=== PATIENT | female | born 1955 | race Caucasian/White ===

== ENCOUNTER → 2018-11-12 | Day surgery (SDC) | payer MEDICARE | END | disposition home or self-care (01) | LOC: GIL 09:44 | DX: R10.9 Unspecified abdominal pain (principal); Z53.8 Procedure and treatment not carried out for other reasons; I48.91 Unspecified atrial fibrillation ==

== ENCOUNTER 2018-11-26 08:22 | Day surgery (SDC) | payer MEDICARE | END 2018-11-26 09:53 | disposition home or self-care (01) | LOC: GIL 08:22 | DX: Z43.1 Encounter for attention to gastrostomy (principal) | CPT/HCPCS: 99211 ==

== ENCOUNTER 2019-03-25 07:29 | Inpatient (IN) | payer MEDICARE, BC ==
[2019-03-25] MEDS: CEFTRIAXONE 1 GM/50 ML (PMX) 50 ML IVPB ×2 (08:08→08:40)
[2019-03-25] MEDS: ONDANSETRON 4 MG INJ IV ×3 (08:09→23:43)
[2019-03-25] MEDS: morphine 4 MG/ML VIAL IV (08:09)
[2019-03-25] MEDS: SODIUM CHLORIDE 0.9% 1L BAG IV* (08:09)
[2019-03-25 08:10] LABS: ADD MAN DIFF? NO
[2019-03-25 08:11] LABS: BASOPHILS % 0.3 % (0.0-2.0); EOSINOPHILS % 0.1 % (0.0-7.0); HEMATOCRIT 48.7 % (37.0-47.0); HEMOGLOBIN 15.3 g/dl (12.0-16.0); LYMPHOCYTES % 14.8 % (15.0-51.0); MEAN CORPUSCULAR HEMOGLOBIN 26.1 pg (29.0-33.0); MEAN CORPUSCULAR HGB CONC 31.4 g/dl (32.0-37.0); MEAN PLATELET VOLUME 11.1 fl (7.4-10.4); MONOCYTE # 0.4 10^3/ul (0.3-0.9); NEUTROPHILS % 81.3 % (39.0-77.0); PLATELET COUNT 371 10^3/UL (140-415); RED BLOOD COUNT 5.87 10^6/ul (4.20-5.40); RED CELL DISTRIBUTION WIDTH 16.6 % (11.5-14.5)
[2019-03-25 08:11] LABS: WHITE BLOOD COUNT 13.5 10^3/ul (4.8-10.8)
[2019-03-25] MEDS: METOPROLOL 5 MG INJ IV (08:17)
[2019-03-25 08:31] LABS: INR 1.99; PROTIME 22.7 Sec (11.9-14.9); PT RATIO 1.8
[2019-03-25 08:32] LABS: PARTIAL THROMBOPLASTIN TIME 35.7 Sec (23.0-35.0)
[2019-03-25 08:44] LABS: ALANINE AMINOTRANSFERASE 18 IU/L (13-69); ALBUMIN 4.2 g/dl (3.3-4.9); ALBUMIN/GLOBULIN RATIO 1.07; ALKALINE PHOSPHATASE 78 IU/L (42-121); ANION GAP 13 (5-13); ASPARTATE AMINO TRANSFERASE 21 IU/L (15-46); BILIRUBIN,INDIRECT 0.5 mg/dl (0-1.1); BILIRUBIN,TOTAL 0.5 mg/dl (0.2-1.3); BLOOD UREA NITROGEN 22 mg/dl (7-20); CALCIUM 10.8 mg/dl (8.4-10.2); CARBON DIOXIDE 24 mmol/L (21-31); CHLORIDE 104 mmol/L (97-110); CREATININE 1.16 mg/dl (0.44-1.00); Estimated GFR 47 mL/min (>60); GLUCOSE 147 mg/dl (70-220); POTASSIUM 4.4 mmol/L (3.5-5.1); SODIUM 141 mmol/L (135-144); TOTAL PROTEIN 8.1 g/dl (6.1-8.1)
[2019-03-25 08:49] LABS: ADD UMIC YES; UR ASCORBIC ACID 40 mg/dL (NEGATIVE); UR BACTERIA MANY /HPF (NONE SEEN); UR BILIRUBIN (Dip) NEGATIVE (NEGATIVE); UR BLOOD (Dip) NEGATIVE (NEGATIVE); UR CLARITY CLOUDY (CLEAR); UR COLOR AMBER (YELLOW); UR GLUCOSE (Dip) NEGATIVE (NEGATIVE); UR KETONES (Dip) TRACE mg/dL (NEGATIVE); UR LEUKOCYTE ESTERASE (Dip) TRACE Leu/ul (NEGATIVE); UR MUCUS MANY /HPF (NONE SEEN); UR NITRITE (Dip) NEGATIVE (NEGATIVE); UR RBC 3 /HPF (0-5); UR SPECIFIC GRAVITY (Dip) 1.023 (1.003-1.030); UR SQUAMOUS EPITHELIAL CELL FEW /HPF (FEW); UR TOTAL PROTEIN (Dip) 3+ mg/dl (NEGATIVE); UR UROBILINOGEN (Dip) NEGATIVE (NEGATIVE); UR WBC 34 /HPF (0-5)
[2019-03-25 08:53] LABS: TROPONIN-I < 0.012 ng/ml (0.000-0.120)
[2019-03-25] MEDS ORDERED: ACETAMINOPHEN 325 MG TAB PO ×2 (10:00→11:00)
[2019-03-25] MEDS ORDERED: ONDANSETRON 4 MG INJ IV (10:00)
[2019-03-25 10:13] LABS: LACTIC ACID 1.9 mmol/L (0.5-2.0)
[2019-03-25] MEDS ORDERED: DOCUSATE SODIUM 100 MG CAP PO (11:00)
[2019-03-25] MEDS ORDERED: LORAZEPAM 0.5 MG TAB PO (11:00)
[2019-03-25] MEDS ORDERED: NACL 0.9% 3 ML SYG IV (11:00)
[2019-03-25] MEDS ORDERED: MAGNESIUM HYDROXIDE 30ML CUP PO (11:00)
[2019-03-25] MEDS ORDERED: DILTIAZEM 25 MG INJ IV (12:00)
[2019-03-25] MEDS: morphine 2 MG INJ IV ×2 (13:12→23:38)
[2019-03-25] MEDS: SOD CHLORIDE 0.9% 1,000 ML IV (14:28)
[2019-03-25 15:37] LABS: LACTIC ACID 1.8 mmol/L (0.5-2.0)
[2019-03-25] MEDS: RIVAROXABAN 20 MG TABLET PO (17:20)
[2019-03-25] MEDS: ATORVASTATIN 20 MG TAB PO (20:42)
[2019-03-25] MEDS: METOPROLOL 50 MG TAB PO (20:43)
[2019-03-26] MEDS: PANTOPRAZOLE (EC) 40 MG TAB PO (05:33)
[2019-03-26] MEDS: SOD CHLORIDE 0.9% 1,000 ML IV (05:35)
[2019-03-26 06:52] LABS: ADD MAN DIFF? NO
[2019-03-26 06:55] LABS: BASOPHILS % 0.4 % (0.0-2.0); EOSINOPHILS # 0.1 10^3/ul (0.0-0.5); EOSINOPHILS % 1.1 % (0.0-7.0); HEMATOCRIT 37.6 % (37.0-47.0); HEMOGLOBIN 11.8 g/dl (12.0-16.0); LYMPHOCYTES # 2.6 10^3/ul (0.8-2.9); LYMPHOCYTES % 23.9 % (15.0-51.0); MEAN CORPUSCULAR HEMOGLOBIN 26.6 pg (29.0-33.0); MEAN CORPUSCULAR HGB CONC 31.4 g/dl (32.0-37.0); MEAN CORPUSCULAR VOLUME 84.9 fl (82.0-101.0); MEAN PLATELET VOLUME 11.6 fl (7.4-10.4); MONOCYTE # 0.9 10^3/ul (0.3-0.9); MONOCYTES % 8.4 % (0.0-11.0); NEUTROPHIL # 7.2 10^3/ul (1.6-7.5); NEUTROPHILS % 65.7 % (39.0-77.0); PLATELET COUNT 270 10^3/UL (140-415); RED BLOOD COUNT 4.43 10^6/ul (4.20-5.40); RED CELL DISTRIBUTION WIDTH 16.4 % (11.5-14.5)
[2019-03-26 07:19] LABS: ALANINE AMINOTRANSFERASE 20 IU/L (13-69); ALBUMIN 2.9 g/dl (3.3-4.9); ALBUMIN/GLOBULIN RATIO 0.96; ALKALINE PHOSPHATASE 48 IU/L (42-121); ANION GAP 5 (5-13); ASPARTATE AMINO TRANSFERASE 17 IU/L (15-46); BILIRUBIN,INDIRECT 0.4 mg/dl (0-1.1); BILIRUBIN,TOTAL 0.4 mg/dl (0.2-1.3); BLOOD UREA NITROGEN 20 mg/dl (7-20); CALCIUM 8.7 mg/dl (8.4-10.2); CARBON DIOXIDE 25 mmol/L (21-31); CHLORIDE 108 mmol/L (97-110); CHOL/HDL RATIO 4.8 RATIO; CHOLESTEROL 146 mg/dl (100-200); CREATININE 0.86 mg/dl (0.44-1.00); Estimated GFR > 60 mL/min (>60); GLUCOSE 78 mg/dl (70-220); HDL CHOLESTEROL 30 mg/dl (35-98); LDL CHOLESTEROL,CALCULATED 95 mg/dl; MAGNESIUM 1.6 mg/dl (1.7-2.5); POTASSIUM 3.8 mmol/L (3.5-5.1); SODIUM 138 mmol/L (135-144); TOTAL PROTEIN 5.9 g/dl (6.1-8.1); TRIGLYCERIDES 107 mg/dl (0-149)
[2019-03-26 07:29] LABS: FREE T4 (FREE THYROXINE) 1.53 ng/dl (0.78-2.44)
[2019-03-26] MEDS: CEFTRIAXONE 1 GM/50 ML (PMX) 50 ML IVPB (08:35)
[2019-03-26] MEDS: METOPROLOL 50 MG TAB PO ×2 (08:35→21:26)
[2019-03-26] MEDS: BARIUM SULFATE 135 ML (E-Z HD) PO (10:42)
[2019-03-26] MEDS: MAGNESIUM SULFATE 2 GM/50 ML 50 ML IVPB (11:41)
[2019-03-26 12:18] LABS: THYROID STIMULATING HORMONE 0.265 MIU/L (0.465-4.680)
[2019-03-26 15:49] LABS: CARCINOEMBRYONIC ANTIGEN 0.5 ng/ml (0.0-5.0)
[2019-03-26] MEDS: ATORVASTATIN 40 MG TAB PO (21:25)
[2019-03-27] MEDS: HYDROCODONE/APAP (5/325) TAB PO (00:26)
[2019-03-27] MEDS: PANTOPRAZOLE (EC) 40 MG TAB PO (05:20)
[2019-03-27 06:50] LABS: ADD MAN DIFF? NO
[2019-03-27 06:57] LABS: WHITE BLOOD COUNT 9.6 10^3/ul (4.8-10.8)
[2019-03-27 06:57] LABS: BASOPHILS % 0.4 % (0.0-2.0); EOSINOPHILS # 0.1 10^3/ul (0.0-0.5); EOSINOPHILS % 1.1 % (0.0-7.0); HEMATOCRIT 41.5 % (37.0-47.0); HEMOGLOBIN 13.1 g/dl (12.0-16.0); LYMPHOCYTES # 2.3 10^3/ul (0.8-2.9); LYMPHOCYTES % 23.9 % (15.0-51.0); MEAN CORPUSCULAR HEMOGLOBIN 26.5 pg (29.0-33.0); MEAN CORPUSCULAR HGB CONC 31.6 g/dl (32.0-37.0); MEAN CORPUSCULAR VOLUME 83.8 fl (82.0-101.0); MONOCYTE # 0.5 10^3/ul (0.3-0.9); MONOCYTES % 5.4 % (0.0-11.0); NEUTROPHIL # 6.6 10^3/ul (1.6-7.5); NEUTROPHILS % 68.7 % (39.0-77.0); PLATELET COUNT 279 10^3/UL (140-415); RED BLOOD COUNT 4.95 10^6/ul (4.20-5.40); RED CELL DISTRIBUTION WIDTH 16.2 % (11.5-14.5)
[2019-03-27 07:21] LABS: ALANINE AMINOTRANSFERASE 15 IU/L (13-69); ALBUMIN/GLOBULIN RATIO 1.11; ALKALINE PHOSPHATASE 54 IU/L (42-121); ANION GAP 6 (5-13); ASPARTATE AMINO TRANSFERASE 15 IU/L (15-46); BILIRUBIN,INDIRECT 0.4 mg/dl (0-1.1); BILIRUBIN,TOTAL 0.4 mg/dl (0.2-1.3); BLOOD UREA NITROGEN 17 mg/dl (7-20); CALCIUM 8.8 mg/dl (8.4-10.2); CARBON DIOXIDE 25 mmol/L (21-31); CHLORIDE 107 mmol/L (97-110); CREATININE 0.95 mg/dl (0.44-1.00); Estimated GFR 59 mL/min (>60); GLUCOSE 107 mg/dl (70-220); POTASSIUM 3.4 mmol/L (3.5-5.1); SODIUM 138 mmol/L (135-144); TOTAL PROTEIN 5.7 g/dl (6.1-8.1)
[2019-03-27 07:22] LABS: IRON 24 ug/dl (35-150)
[2019-03-27 07:23] LABS: PHOSPHORUS 2.9 mg/dl (2.5-4.9)
[2019-03-27 07:23] LABS: MAGNESIUM 2.1 mg/dl (1.7-2.5)
[2019-03-27 07:31] LABS: % IRON SATURATION 8 % SAT (22-52); TOTAL IRON BINDING CAPACITY 298 ug/dl (241-421)
[2019-03-27] MEDS: CEFTRIAXONE 1 GM/50 ML (PMX) 50 ML IVPB (08:26)
[2019-03-27] MEDS: METOPROLOL 50 MG TAB PO (08:27)
[2019-03-27] MEDS: POTASSIUM CHLORIDE (SR) 10 MEQ TAB PO ×2 (08:30→10:21)
[2019-03-27 08:45] LABS: FOLATE 7.6 ng/ml (2.8-20.0)
[2019-03-27] MEDS: RIVAROXABAN 20 MG TABLET PO ×2 (10:21→17:40)
[2019-03-27] MEDS: DIGOXIN 500 MCG INJ IV (10:24)
[2019-03-27] MEDS: ONDANSETRON 4 MG INJ IV (10:46)
== END 2019-03-27 18:30 | disposition home or self-care (01) | DRG 872 ==
LOC: E/R 07:29 → TEL 09:50
DX: A41.9 Sepsis, unspecified organism (principal); N17.9 Acute kidney failure, unspecified; N39.0 Urinary tract infection, site not specified; I48.91 Unspecified atrial fibrillation; E78.5 Hyperlipidemia, unspecified; I10 Essential (primary) hypertension; I25.10 Atherosclerotic heart disease of native coronary artery without angina pectoris; Z79.01 Long term (current) use of anticoagulants; Z86.73 Personal history of transient ischemic attack (TIA), and cerebral infarction without residual deficits
CPT/HCPCS: 36415; 71045; 71250; 74176; 76775; 80053; 80061; 81001; 82378; 82607; 82746; 83036; 83540; 83605; 83735; 84100; 84439; 84443; 84484; 85025; 85610; 85730; 87040-91; 87086; 93005; 93306; 96374; 96375; 99285-25